=== PATIENT | male | born 1995 | race Caucasian/White ===

== ENCOUNTER 2022-09-29 08:34 | Outpatient (CLI) | payer BC, SELFPAY ==
--- NOTE | ~2022-09-29 | MR_ITS ---
MR arthrogram of the left shoulder Technique: Axial T2 fat-sat, sagittal T1-weighted and T2 fat-sat, and coronal T2 fat-sat images were performed. T1 fat-sat imaging was performed in the axial, coronal, and abduction external rotation po sitions. Clinical History: Biceps tendinitis Findings: No significant degenerative change at the AC joint. Coracoclavicular, coracoacromial, and c oracohumeral ligaments are intact. Supraspinatus and infraspinatus tendons are intact, without partial or full-thickness tear. Subscapul sherron tendon is intact. Tendon of the long head of the biceps is intact. No labral tear identified. Inferior glenohumeral ligament is intact. No degenerative change evidence of the glenohumeral joint. No fluid distention of, or contrast extravasation into, the subacromial/subdeltoid bursa. No muscle a trophy or edema. Impression: No significant abnormality seen. Reviewed, dictated and finalized at [facility]. [employer] Impression: No significant abnormality seen.
--- NOTE | ~2022-09-29 | XR_ITS ---
EXAMINATION: XR fl inj shoulder LT - MR/CT DATE: 09/29/2022 09:54 INDICATION: Biceps tendinitis of left upper extremity. No prior surgery or dislocation. TECHNIQUE: A time-out was performed to verify the patient's name, date of , and procedure to b e performed. The procedure including the risks, benefits, and alternatives was discussed with the pat ient. Risks discussed included bleeding and infection. The patient understood the risks and agreed to proceed. The skin overlying the left glenohumeral joint was prepped and draped in usual sterile fash ion. Anesthetic was administered with 1% lidocaine subcutaneously. A 22 G needle was advanced under fluoroscopic guidance into the joint. Subsequently, injectate consisting of 12 mL of 1:200 Multihan ce, 1:4 1% lidocaine, and 1:4 Omnipaque 240 was instilled. The needle was removed and the entry site was cleaned and dressed. There were no immediate complications. Fluoroscopy exposure time was 0.0 m inutes. The total number of images was 3. FINDINGS: Real-time fluoroscopy demonstrates the needle and contrast in the left glenohumeral joint. IMPRESSION: 1. Successful left glenohumeral joint injection of contrast for subsequent MR arthrography. Reviewed, dictated and finalized at location A. [employer] IMPRESSION: 1. Successful left glenohumeral joint injection of contrast for subsequent MR a rthrography.
== END 2022-09-29 08:35 | disposition home or self-care (01) ==
PROVIDERS: PCP Family Medicine Sports Medicine; Visit Provider Physician Assistant
DX: M75.22 Bicipital tendinitis, left shoulder (principal)
CPT/HCPCS: 23350; 73222; A9577; Q9966